=== PATIENT | female | born 1995 | race Caucasian/White ===

== ENCOUNTER 2025-04-16 12:43 | Inpatient (IN) | payer SELFPAY ==
[2025-04-16] VITALS (8 sets, daily range): BP systolic 105–153; BP diastolic 59–95; PULSE 100–128; RESP 16–24; TEMP 36.6–37; O2SAT 96–100; BMI 20.1
--- NOTE | ~2025-04-16 | XR_ITS ---
EXAMINATION: XR chest 1V Exam Date/Time: 04/16/2025 15:10 CDT HISTORY: DKA Comparison: None. RESULT: Lines, tubes, and devices: None. Lungs and pleura: Clear. Cardiomediastinal silhouette: Normal. Other: No acute osseous or upper abdominal finding. IMPRESSION: No acute cardiopulmonary process. Reviewed, dictated and finalized at location K.
--- NOTE | ~2025-04-16 | CT_ITS ---
EXAMINATION: CT chest abdomen pelvis w con DATE: 04/16/2025 15:08 INDICATION: Severe DkA, elevated white count. . TECHNIQUE: Computed tomography (CT) of the chest, abdomen, and pelvis was performed with 100 mL Omnip aque-350 intravenous contrast. Automated exposure control and iterative reconstruction technique were employed. The dose-length product was 265.22 mGy-cm. COMPARISON: None FINDINGS: CHEST: Thoracic aorta: No significant dilation. No dissection. Lung parenchyma and airways: Lungs and airways are clear. Thoracic inlet, axillae and chest wall: No thyroid or soft tissue mass. No axillary lymphadenopathy. Mediastinum: No mass or lymphadenopathy. Heart and pericardium: Normal heart size. No pericardial effusion. Coronary artery calcifications: Absent. Pleura: No effusion or mass. Thoracic bones: No acute osseous finding in the chest. ABDOMEN/PELVIS: Liver: Normal. Biliary/Gallbladder: Gallbladder is normal. No bile duct dilation. Pancreas: No mass or duct dilation. Spleen: Normal. Adrenals:No mass. Kidneys: No suspicious mass, obstructing stone, or hydronephrosis. GI tract: Mild distal esophageal and gastric wall edema. Scattered areas of mild colonic wall edema. No small or large bowel dilation. Normal appendix. Mesentery/Peritoneum: No ascites, mass, or free air. Retroperitoneum: No mass Pelvis: Pelvic organs are within normal limits Soft Tissues: Soft tissues and body wall unremarkable. Abdominopelvic bones: No acute osseous finding in the abdomen/pelvis. IMPRESSION: Mild esophagitis/gastritis. Scattered areas of mild colonic wall edema, which may reflect colitis in the appropriate clinical con text. Reviewed, dictated and finalized at location K. IMPRESSION: Mild esophagitis/gastritis. Scattered areas of mild colonic wall edema, which may reflect colitis in the ap propriate clinical context.
[2025-04-16 12:49] LABS: Glucose Point of Care 483 mg/dl (65-105)
[2025-04-16] MEDS: SODIUM CHLORIDE 0.9% IV 2,000 ML 999 ML (13:18)
[2025-04-16 13:43] LABS: Basophils Absolute Auto 0.1 K/mm3 (0.0-0.1); Basophils Percent Auto 0.6 % (0.2-1.2); Eosinophils Percent Auto 0.1 % (0-4.4); Hematocrit 47.6 % (37.0-47.0); Hemoglobin 14.4 g/dL (12.0-15.0); Immature Granulocyte Absolute 0.18 K/mm3 (0.00-0.031); Immature Granulocyte Percent A 1.2 % (0-0.5); Lymphocytes Absolute Auto 1.43 K/mm3 (0.9-3.2); Lymphocytes Percent Auto 9.3 % (18.3-44.2); Mean Corpuscular HGB Conc 30.3 g/dl (32-36); Mean Corpuscular Hemoglobin 32.6 pg (26-34); Mean Corpuscular Volume 107.7 fl (80-100); Mean Platelet Volume 10.8 fl (7.4-10.4); Monocytes Absolute Auto 0.3 K/mm3 (0.1-0.6); Neutrophils Absolute Auto 13.4 K/mm3 (1.3-6.7); Neutrophils Percent Auto 86.8 % (45.5-73.1); Platelet Count Result 359 k/mm3 (150-375); Red Blood Count 4.42 M/mm3 (4.2-5.4); Red Cell Distribution Width 14.5 % (11.5-14.5); White Blood Count 15.4 K/mm3 (4.5-10.0)
[2025-04-16 13:52] LABS: Fractional Inspired Oxygen 21 %; HCO3 VBG 3.6 mEq/l (24.0-30.0); PO2 VBG 89.4 mmHg (35.0-45.0)
[2025-04-16 13:53] LABS: pH VBG 6.922 (7.300-7.400)
[2025-04-16 13:54] LABS: Device ROOM AIR; PCO2 VBG 17.7 mmHg (42.0-48.0)
[2025-04-16 14:04] LABS: Alanine Aminotransferase 33 U/L (6-35); Albumin Level 5.3 g/dL (3.5-5.1); Alkaline Phosphatase 140 U/L (38-126); Aspartate Amino Transferase 62 U/L (14-36); Bilirubin,Total 0.7 mg/dL (0.2-1.3); Blood Urea Nitrogen 14 mg/dL (7-17); Calcium 9.5 mg/dL (8.4-10.2); Carbon Dioxide < 5 mmol/L (22-30); Chloride 102 mmol/L (98-107); Estimated CRCL calculation 52 ml/min; Estimated Glomerular Filt Rate > 60; Glucose 595 mg/dL (65-110); Magnesium 2.7 mg/dL (1.6-2.3); Phosphorus 6.2 mg/dL (2.5-4.5); Potassium 6.4 mmol/L (3.4-5.0); Sodium 138 mmol/L (137-145)
[2025-04-16 14:09] LABS: Burr Cells 1+; Macrocytosis 1+ (NORMAL); Platelet Estimate Adequate (Adequate); Schistocytes None Seen
[2025-04-16] MEDS: ONDANSETRON INJ 4 MG/2 ML VIAL IV PUSH (14:10)
[2025-04-16 14:14] LABS: BEDSIDEPREGUCG Negative (Negative)
[2025-04-16 14:18] LABS: Total Protein 10.9 g/dL (6.3-8.2)
[2025-04-16 14:20] LABS: Influenza A QL RT-PCR Negative (Negative); Influenza B QL RT-PCR Negative (Negative); RSV RNA, RT-PCR. Negative (Negative); SARS-CoV-2 RNA PCR Negative (Negative)
[2025-04-16 14:21] LABS: Add Urine Microscopic? YES; Appearance Urine Clear (Clear); Bacteria Urine Rare /hpf; Bilirubin Urine Negative (Negative); Blood Urine 3+ (Negative); Color Urine Yellow (Yellow); Glucose Urine UA 3+ mg/dL (Negative); Ketones Urine 4+ mg/dL (Negative); Leukocyte Esterase Ur Negative LEU/UL (Negative); Nitrate Urine Negative (Negative); Protein Urine 2+ mg/dL (Negative); RBC Urine 51-100 /hpf (0-2); Specific Grav Ur 1.025 (1.001-1.035); Squamous Epithelial Cell Urine None Seen /hpf (Few); Urobilinogen Urine 0.2 mg/dL (<2.0); WBC Urine 0-5 /hpf (0-3)
[2025-04-16] MEDS: LACTATED RINGERS 2,000 ML 999 ML IV CONT (14:26)
[2025-04-16] MEDS: SODIUM BICARBONATE 8.4% 50 MEQ/50 ML SYRINGE 100 MEQ IV PUSH (14:26)
[2025-04-16 14:32] LABS: Amphetamine Screen Urine Negative (Negative); Barbiturate Screen Urine Negative (Negative); Benzodiazepines Screen Urine Negative (Negative); Cannabinoid Screen Urine Negative (Negative); Cocaine Screen Urine Negative (Negative); Methadone Screen Urine Negative (Negative); Opiate Screen Urine Negative (Negative); Phencyclidine Screen Urine Negative (Negative)
[2025-04-16] MEDS: CEFEPIME 2 GM/NS 50 ML 2 GM/50 ML BAG IVPB ×2 (14:34→22:25)
[2025-04-16] MEDS: INSULIN HUMAN REGULAR (*BKC) 100 UNITS in SODIUM CHLORIDE 0.9% IV 99 ML IV CONT (15:31)
[2025-04-16] MEDS: INSULIN HUMAN REGULAR (*BKC) 100 UNITS/ML 7.5 UNITS IV PUSH (15:32)
--- NOTE | 2025-04-16 15:58 | ED_ITS ---
HPI - General Adult General Chief complaint: Recheck/Abnormal Lab/Rx Stated complaint: Possible DKA Time Seen by Provider: 04/16/25 13:17 History of Present Illness HPI narrative: This is a 29-year-old type 1 diabetic presenting with abdominal pain nausea and vomiting. Patient states she has not been taking her insulin over the last several days consistently. She says she is not taking it because she is not very ?mindful.?Occurred complaints or abdominal pain nausea and vomiting. She denies fevers chest pain difficulty breathing or urinary symptoms. No skin findings. Related Data Allergies Allergy/AdvReac Type Severity Reaction Status Date / Time Penicillins Allergy Unknown Other Verified 04/16/25 12:49 Exam 2 Narrative: APPEARANCE: No apparent distress. Head: Poor dentition EYES: EOMI, NOSE: Atraumatic NECK: Trachea midline RESPIRATORY: Tachypneic, clear to auscultation CARDIOVASCULAR: Tachycardic no peripheral edema ABDOMINAL: Soft, no focal tenderness guarding rebound MUSCULOSKELETAl: No obvious deformities NEURO: Alert. Moving 4/4 extremities SKIN:: Warm, dry. Normal color PSYCHIATRIC: Normal affect Course Vital Signs Vital signs: Vital Signs Temperature 98.1 F 04/16/25 12:46 Pulse Rate 100 04/16/25 12:46 Respiratory Rate 24 H 04/16/25 12:46 Blood Pressure 153/95 H 04/16/25 12:46 Pulse Oximetry 100 04/16/25 12:46 Oxygen Delivery Room Air 04/16/25 12:46 Temperature 98.1 F 04/16/25 13:49 Pulse Rate 128 H 04/16/25 13:49 Respiratory Rate 22 H 04/16/25 13:55 Blood Pressure 153/95 H 04/16/25 12:46 Pulse Oximetry 100 04/16/25 13:55 Oxygen Delivery Room Air 04/16/25 13:49 Medical Decision Making [facility] Narrative Medical decision making narrative: -Course: 29-year-old female presenting with abdominal pain nausea and vomiting. Found to be in severe DKA. PH 6.9. Bicarb undetectable. Potassium 6.7. Infectious workup negative. Patient given 3 L of LR. DKA fluid order set activated. Patient started on broad-spectrum antibiotics. Patient given 2 amps of sodium bicarb due to pH of 6.9. Insulin drip started Patient will be admitted to the ICU further management. -DDX includes but is not limited to: DKA, pneumonia, fever UTI, bacteremia Vital Signs Vital Signs: Vital Signs Temperature 98.1 F 04/16/25 12:46 Pulse Rate 100 04/16/25 12:46 Respiratory Rate 24 H 04/16/25 12:46 Blood Pressure 153/95 H 04/16/25 12:46 Pulse Oximetry 100 04/16/25 12:46 Oxygen Delivery Room Air 04/16/25 12:46 Temperature 98.1 F 04/16/25 13:49 Pulse Rate 128 H 04/16/25 13:49 Respiratory Rate 22 H 04/16/25 13:55 Blood Pressure 153/95 H 04/16/25 12:46 Pulse Oximetry 100 04/16/25 13:55 Oxygen Delivery Room Air 04/16/25 13:49 Lab Data 04/16/25 13:34 04/16/25 13:34 Labs: Lab Results 04/16/25 04/16/25 04/16/25 Range/Units 12:46 13:07 13:34 WBC 15.4 H (4.5-10.0) K/mm3 RBC 4.42 (4.2-5.4) M/mm3 Hgb 14.4 (12.0-15.0) g/dL Hct 47.6 H (37.0-47.0) % MCV 107.7 H (80-100) fl MCH 32.6 (26-34) pg MCHC 30.3 L (32-36) g/dl RDW 14.5 (11.5-14.5) % Plt Count 359 (150-375) k/mm3 MPV 10.8 H (7.4-10.4) fl Immature Gran % (Auto) 1.2 H (0-0.5) % Neut % (Auto) 86.8 H (45.5-73.1) % Lymph % (Auto) 9.3 L (18.3-44.2) % [place] % (Auto) 2.0 L (2.6-8.5) % Eos % (Auto) 0.1 (0-4.4) % Baso % (Auto) 0.6 (0.2-1.2) % Lymph # (Auto) 1.43 (0.9-3.2) K/mm3 [place] # (Auto) 0.3 (0.1-0.6) K/mm3 Eos # (Auto) 0.0 (0-0.3) K/mm3 Baso # (Auto) 0.1 (0.0-0.1) K/mm3 Abs Immat Gran (auto) 0.18 H (0.00-0.031) K/mm3 Absolute Neuts (auto) 13.4 H (1.3-6.7) K/mm3 Absolute Nucleated RBC 0.000 (0.0-0.012) K/mm3 Band Neutrophils % Not Reportable Nucleated RBC % 0.0 (0.0-0.2) % Platelet Estimate Adequate (Adequate) Macrocytosis 1+ (NORMAL) [place] Cells 1+ Schistocytes None seen Sodium 138 (137-145) mmol/L Potassium 6.4 H* (3.4-5.0) mmol/L Chloride 102 (98-107) mmol/L Carbon Dioxide < 5 L (22-30) mmol/L Anion Gap (4-12) mmol/L BUN 14 (7-17) mg/dL Creatinine 1.07 H (0.7-1.0) mg/dL Estim Creat Clear Calc 52 ml/min Estimated GFR > 60 (59 - ) Glucose 595 H* (65-110) mg/dL POC Capillary Glucose 483 H (65-105) mg/dl Calcium 9.5 (8.4-10.2) mg/dL Phosphorus 6.2 H (2.5-4.5) mg/dL Magnesium 2.7 H (1.6-2.3) mg/dL Total Bilirubin 0.7 (0.2-1.3) mg/dL AST 62 H (14-36) U/L ALT 33 (6-35) U/L Alkaline Phosphatase 140 H (38-126) U/L Total Protein 10.9 H (6.3-8.2) g/dL Albumin 5.3 H (3.5-5.1) g/dL Beta-Hydroxybutyrate/Acetoacetate Pending Urine Color (Yellow) Urine Appearance (Clear) Urine pH (5.0-9.0) Ur Specific [place] (1.001-1.035) Urine Protein (Negative) mg/dL Urine Glucose (UA) (Negative) mg/dL Urine Ketones (Negative) mg/dL Ur Blood (Man) (Negative) Urine Nitrate (Negative) Urine Bilirubin (Negative) Urine Urobilinogen (<2.0) mg/dL Leukocyte Esterase Rfl (Negative) PRINCE/UL Urine RBC (0-2) /hpf Urine WBC (0-3) /hpf Ur Squamous Epith Cells (Few) /hpf Urine Bacteria /hpf Urine Casts POC Urine HCG, Qual Negative (Negative) Urine Opiates Screen (Negative) Urine Methadone Screen (Negative) Ur Barbiturates Screen (Negative) Ur Phencyclidine Scrn (Negative) Ur Amphetamine Screen (Negative) U Benzodiazepines Scrn (Negative) Urine Cocaine Screen (Negative) U Cannabinoids Screen (Negative) Influenza A (RT-PCR) (Negative) Influenza B (RT-PCR) (Negative) RSV (RT-PCR) (Negative) SARS-CoV-2 RNA (RT-PCR) (Negative) 04/16/25 04/16/25 Range/Units 13:35 14:09 WBC (4.5-10.0) K/mm3 RBC (4.2-5.4) M/mm3 Hgb (12.0-15.0) g/dL Hct (37.0-47.0) % MCV (80-100) fl MCH (26-34) pg MCHC (32-36) g/dl RDW (11.5-14.5) % Plt Count (150-375) k/mm3 MPV (7.4-10.4) fl Immature Gran % (Auto) (0-0.5) % Neut % (Auto) (45.5-73.1) % Lymph % (Auto) (18.3-44.2) % [place] % (Auto) (2.6-8.5) % Eos % (Auto) (0-4.4) % Baso % (Auto) (0.2-1.2) % Lymph # (Auto) (0.9-3.2) K/mm3 [place] # (Auto) (0.1-0.6) K/mm3 Eos # (Auto) (0-0.3) K/mm3 Baso # (Auto) (0.0-0.1) K/mm3 Abs Immat Gran (auto) (0.00-0.031) K/mm3 Absolute Neuts (auto) (1.3-6.7) K/mm3 Absolute Nucleated RBC (0.0-0.012) K/mm3 Band Neutrophils % Nucleated RBC % (0.0-0.2) % Platelet Estimate (Adequate) Macrocytosis (NORMAL) [place] Cells Schistocytes Sodium (137-145) mmol/L Potassium (3.4-5.0) mmol/L Chloride (98-107) mmol/L Carbon Dioxide (22-30) mmol/L Anion Gap (4-12) mmol/L BUN (7-17) mg/dL Creatinine (0.7-1.0) mg/dL Estim Creat Clear Calc ml/min Estimated GFR (59 - ) Glucose (65-110) mg/dL POC Capillary Glucose (65-105) mg/dl Calcium (8.4-10.2) mg/dL Phosphorus (2.5-4.5) mg/dL Magnesium (1.6-2.3) mg/dL Total Bilirubin (0.2-1.3) mg/dL AST (14-36) U/L ALT (6-35) U/L Alkaline Phosphatase (38-126) U/L Total Protein (6.3-8.2) g/dL Albumin (3.5-5.1) g/dL Beta-Hydroxybutyrate/Acetoacetate Urine Color Yellow (Yellow) Urine Appearance Clear (Clear) Urine pH 5.0 (5.0-9.0) Ur Specific [place] 1.025 (1.001-1.035) Urine Protein 2+ H (Negative) mg/dL Urine Glucose (UA) 3+ H (Negative) mg/dL Urine Ketones 4+ H (Negative) mg/dL Ur Blood (Man) 3+ H (Negative) Urine Nitrate Negative (Negative) Urine Bilirubin Negative (Negative) Urine Urobilinogen 0.2 (<2.0) mg/dL Leukocyte Esterase Rfl Negative (Negative) PRINCE/UL Urine RBC 51-100 H (0-2) /hpf Urine WBC 0-5 (0-3) /hpf Ur Squamous Epith Cells None seen (Few) /hpf Urine Bacteria Rare /hpf Urine Casts 3-5 POC Urine HCG, Qual (Negative) Urine Opiates Screen Negative (Negative) Urine Methadone Screen Negative (Negative) Ur Barbiturates Screen Negative (Negative) Ur Phencyclidine Scrn Negative (Negative) Ur Amphetamine Screen Negative (Negative) U Benzodiazepines Scrn Negative (Negative) Urine Cocaine Screen Negative (Negative) U Cannabinoids Screen Negative (Negative) Influenza A (RT-PCR) Negative (Negative) Influenza B (RT-PCR) Negative (Negative) RSV (RT-PCR) Negative (Negative) SARS-CoV-2 RNA (RT-PCR) Negative (Negative) ABG Data ABG results: 04/16/25 13:36 VBG pH 6.922 L* VBG pCO2 17.7 L* VBG pO2 89.4 H VBG HCO3 3.6 L O2 Delivery Device Room air O2 Liters/Min Not Reportable FiO2 21 Critical Care Time Critical Care Time Critical Care Time: Yes Total Critical Care Time: 45 Discharge Plan Discharge Clinical Impression: DKA (diabetic ketoacidosis) Patient Disposition: Home Condition: Stable Instructions: Antibiotic Form Patient Language: Lithuanian Follow-up/Referrals: PHYSICIAN,[employer] INST[employer]ER AND SERVICER [Primary Care Provider] -
[2025-04-16] MEDS: VANCOMYCIN 1,250 MG/NS 250 ML BAG 166.67 MG IVPB (16:28)
[2025-04-16] MEDS: DEXTROSE 5%/0.45% SOD CHL 1,000 ML 150 ML IV CONT (16:50)
--- NOTE | 2025-04-16 16:52 | ADMGEN ---
This patient, Laurel Torres, was admitted to Intensive Care Unit-6. Patient/family oriented to hospital policies and general routines including ID bracelet, bed and alarms, visiting hours, pain management, procedures, bathroom and other care routines, personal items, smoking policy, room service/diet, and visiting hours. Information on how to activate the Rapid Response Team has been discussed. Patient/Family are encouraged to report perceived risks to care and to ask questions if they do not understand what they are told or what they should do.
[2025-04-16 16:53] LABS: Glucose Point of Care 219 mg/dl (65-105)
[2025-04-16 18:00] LABS: Glucose Point of Care 131 mg/dl (65-105)
[2025-04-16 18:11] LABS: Blood Urea Nitrogen 11 mg/dL (7-17); Calcium 8.2 mg/dL (8.4-10.2); Carbon Dioxide < 5 mmol/L (22-30); Chloride 114 mmol/L (98-107); Estimated CRCL calculation 73 ml/min; Estimated Glomerular Filt Rate > 60; Glucose 178 mg/dL (65-110); Potassium 4.6 mmol/L (3.4-5.0); Sodium 144 mmol/L (137-145)
--- NOTE | 2025-04-16 18:35 | P.HP_ITS ---
H&P: HPI History of Present Illness Date/Time: 04/16/25 18:35 Chief Complaint: Nausea vomiting DKA Narrative: 29-year-old female with a PMHx: of type 1 diabetes, insulin dependent, noncompliance with regimen reported to the emergency room today with symptoms of diabetic ketoacidosis the patient mention being a type 1 diabetic and reporting feeling very nauseous and had episodes of vomiting starting in the morning of the presentation, the patient did not report having any diarrhea fevers or chills the patient typically manage diabetes with insulin pens but admits sometimes forgetting to take the medication patient does not use a continuous glucose monitor due to insurance issues in mention a past set up with social service coordinator but is uncertain of the outcome. Patient reports no recent visits with the primary care due to her not having insurance at this time. She reports occasional marijuana use. ED workup revealed elevated WBC 15.4, initial K+ 6.4, creatinine 1.07, glucose 595, phosphorus 6.2, magnesium 2.7, AST 62, alk-phos 140, UA results include urine protein, elevated glucose, and elevated ketones beta hydroxybutyrate 8.11 chest x-ray reveals no acute cardiopulmonary process. CT chest abdomen pelvis reveals mild esophagitis/gastritis scattered areas of mild colonic wall edema which may reflect colitis in the appropriate clinical context Review of Systems Review of Systems: All systems reviewed & are unremarkable except as noted in HPI and below PMFSH Social History Social History Smoking packs per day: 0.5 Smoking cigarettes per day: 10.0 Years smoked: 10 Smoking pack-years: 5.00 Smoking status: Current some day smoker Tobacco type: cigarettes Alcohol intake: current Drinks per week: 8 Substance use: never Substance use type: does not use Do You Feel Safe in your Home?: Yes Lack of Transportation: No Lack of Food: Never True Current Housing: I Have Housing Concerned About Future Housing: No Difficulty Paying Gas/Electric Bills: No Difficulty Paying for Meds: No Currently Unemployed: No Education: Decline to Answer Difficulty w/ Childcare or Family Care: No Spiritual care concerns: No Meds Home Medications and Allergies Home Medications ?Medication ?Instructions ?Recorded ?Confirmed ?Type insulin aspart U-100 100 unit/mL 1 unit subcut .see dose instruction 04/16/25 04/16/25 History (3 mL) subcutaneous pen insulin glargine 100 unit/mL (3 14 unit subcut DAILY 04/16/25 04/16/25 History mL) subcutaneous pen (Lantus Solostar U-100 Insulin) Allergies Allergy/AdvReac Type Severity Reaction Status Date / Time Penicillins Allergy Unknown Other Verified 04/16/25 16:56 Vital Signs Vital Signs - 24 hr 04/16/25 12:46 04/16/25 13:49 04/16/25 13:55 Temperature 98.1 F 98.1 F Pulse Rate 100 128 H Respiratory Rate 24 H 22 H 22 H Blood Pressure 153/95 H Pulse Oximetry 100 100 100 Oxygen Delivery Room Air Room Air 04/16/25 16:52 04/16/25 18:00 Temperature 98 F Pulse Rate 126 H 114 H Respiratory Rate 21 H 20 Blood Pressure 133/89 122/75 Pulse Oximetry 100 100 Oxygen Delivery Exam Narrative: APPEARANCE: No apparent distress. Resting with eyes closed easily arouses Head: Poor dentition EYES: EOMI, NOSE: Atraumatic NECK: Trachea midline RESPIRATORY: Tachypneic, clear to auscultation CARDIOVASCULAR: Tachycardic no peripheral edema ABDOMINAL: Soft, no focal tenderness guarding rebound MUSCULOSKELETAl: No obvious deformities NEURO: Alert. Moving 4/4 extremities SKIN:: Circular, raised red rash right lower back PSYCHIATRIC: Normal affect H&P: Results Labs Labs: Short CBC 04/16/25 Range/Units 13:34 WBC 15.4 H (4.5-10.0) K/mm3 Hgb 14.4 (12.0-15.0) g/dL Hct 47.6 H (37.0-47.0) % Plt Count 359 (150-375) k/mm3 [facility] 04/16/25 04/16/25 13:34 17:49 Sodium 138 144 Potassium 6.4 H* 4.6 Chloride 102 114 H Carbon Dioxide < 5 L < 5 L BUN 14 11 Creatinine 1.07 H 0.74 Glucose 595 H* 178 H Calcium 9.5 8.2 L Liver Function 04/16/25 Range/Units 13:34 Total Bilirubin 0.7 (0.2-1.3) mg/dL AST 62 H (14-36) U/L ALT 33 (6-35) U/L Alkaline Phosphatase 140 H (38-126) U/L Albumin 5.3 H (3.5-5.1) g/dL Urine 04/16/25 Range/Units 14:09 Urine Color Yellow (Yellow) Urine Appearance Clear (Clear) Urine pH 5.0 (5.0-9.0) Ur Specific [place] 1.025 (1.001-1.035) Urine Protein 2+ H (Negative) mg/dL Urine Glucose (UA) 3+ H (Negative) mg/dL Pulse Oximetry SpO2 results: 98% on RA Attestation: I personally reviewed and interpreted this pulse oximetry as follows: Imaging Chest x-ray: Radiologist's impression: IMPRESSION: No acute cardiopulmonary process. CT scan - abdomen: Radiologist's impression: IMPRESSION: Mild esophagitis/gastritis. Scattered areas of mild colonic wall edema, which may reflect colitis in the appropriate clinical context. Assessment and Plan Assessment and plan (1) DKA (diabetic ketoacidosis): Qualifiers: Diabetes mellitus type: type 1 Code(s): E11.10 - Type 2 diabetes mellitus with ketoacidosis without coma Status: Acute Assessment and Plan: uncontrolled non-compliant with medications -continue ICU/insulin drip DKA protocol -check BMP q.4 hours Continue monitor K+ (2) Rash and nonspecific skin eruption: Code(s): R21 - Rash and other nonspecific skin eruption Status: Acute Assessment and Plan: -continue to monitor -check STI (3) Esophagitis: Code(s): K20.90 - Esophagitis, unspecified without bleeding Status: Acute (4) Colitis: Code(s): K52.9 - Noninfective gastroenteritis and colitis, unspecified Status: Acute Assessment and Plan: As evidence by CT abdomen -pantoprazole 40 mg IV push q. 12 hours -NPO, advance as tolerated (5) Leukocytosis: Code(s): D72.829 - Elevated white blood cell count, unspecified Status: Acute Assessment and Plan: -continue cefepime 2 g IVP q.12 hours -continue vancomycin 1000 mg Q 24 hours -repeat CBC, CMP daily -blood cultures pending Plan Continue home medications: VTE Prophylaxis: SCDs DIET: NPO Anticipated hospital stay: > 2 days Code Status: Full code Quality VTE Prophylaxis VTE prophylaxis: mechanical ordered I spent around 45 minutes of direct patient care including (but not limited to) bedside evaluation, physical examination, decision-making, review of medical records, labs and investigations, discussion with the nursing staff and co- ordination of team-based critical care management of the patient. ? Patient seen and examined at bedside during my rounds ? Collaborated with patient's nurse at the bedside in detail and addressed all concerns ? Labs, electrolytes, radiology, investigations and test results reviewed ? Consult/Nursing/Ancillary notes on the chart reviewed and appreciated ? Spoke with patient/family at the bedside and answered all the questions that they had Hospitalist MIPS Advance Care Plan I have confirmed that the patient's Advanced Care Plan is present, code status is documented, or surrogate decision maker is listed in patient medical record.: Yes Medication Reconciliation I have utilized all available resources to obtain, update and review the patients current medications (includes all prescriptions, OTC, herbals, cannabis, and nutritional supplements).: Yes
[2025-04-16 18:36] LABS: MRSA (PCR). NOT DETECTED (NOT DETECTE)
[2025-04-16] MEDS: ACETAMINOPHEN 325 MG TABLET 650 MG PO (19:03)
[2025-04-16] MEDS: KCL 20 MEQ/D5/0.45% SOD CHL 1,000 ML 150 ML IV CONT (19:03)
[2025-04-16 19:15] LABS: Glucose Point of Care 143 mg/dl (65-105)
[2025-04-16 19:29] LABS: Beta-Hydroxybutyrate/Acetoacetate 8.11 mmol/L (0.02-0.27)
[2025-04-16 20:01] LABS: Hemoglobin A1C. 9.2 % (<5.7)
[2025-04-16 20:07] LABS: Glucose Point of Care 129 mg/dl (65-105)
[2025-04-16 21:09] LABS: Glucose Point of Care 121 mg/dl (65-105)
[2025-04-16 22:03] LABS: Glucose Point of Care 130 mg/dl (65-105)
[2025-04-16] MEDS: PANTOPRAZOLE SODIUM IV 40 MG VIAL IV PUSH (22:25)
[2025-04-16 22:59] LABS: Glucose Point of Care 123 mg/dl (65-105)
[2025-04-16 23:22] LABS: Anion Gap 10 mmol/L (4-12); Blood Urea Nitrogen 11 mg/dL (7-17); Calcium 8.1 mg/dL (8.4-10.2); Carbon Dioxide 14 mmol/L (22-30); Chloride 113 mmol/L (98-107); Estimated CRCL calculation 94 ml/min; Estimated Glomerular Filt Rate > 60; Glucose 114 mg/dL (65-110); Potassium 3.8 mmol/L (3.4-5.0); Sodium 137 mmol/L (137-145)
[2025-04-17] VITALS (11 sets, daily range): BP systolic 94–143; BP diastolic 65–103; PULSE 84–105; RESP 15–28; TEMP 36–37.1; O2SAT 98–100
[2025-04-17 00:12] LABS: Glucose Point of Care 112 mg/dl (65-105)
[2025-04-17 01:02] LABS: Glucose Point of Care 95 mg/dl (65-105)
[2025-04-17] MEDS: KCL 20 MEQ/D5/0.45% SOD CHL 1,000 ML 150 ML IV CONT ×2 (01:05→07:58)
[2025-04-17 02:07] LABS: Glucose Point of Care 107 mg/dl (65-105)
[2025-04-17 03:04] LABS: Glucose Point of Care 104 mg/dl (65-105)
[2025-04-17 04:00] LABS: Glucose Point of Care 114 mg/dl (65-105)
[2025-04-17 04:19] LABS: Anion Gap 9 mmol/L (4-12); Blood Urea Nitrogen 10 mg/dL (7-17); Calcium 8.2 mg/dL (8.4-10.2); Carbon Dioxide 15 mmol/L (22-30); Chloride 113 mmol/L (98-107); Estimated CRCL calculation 87 ml/min; Estimated Glomerular Filt Rate > 60; Glucose 101 mg/dL (65-110); Potassium 3.7 mmol/L (3.4-5.0); Sodium 137 mmol/L (137-145)
[2025-04-17 05:01] LABS: Glucose Point of Care 107 mg/dl (65-105)
[2025-04-17 06:03] LABS: Glucose Point of Care 95 mg/dl (65-105)
[2025-04-17 06:50] LABS: Glucose Point of Care 97 mg/dl (65-105)
[2025-04-17 07:10] LABS: Anion Gap 8 mmol/L (4-12); Blood Urea Nitrogen 11 mg/dL (7-17); Carbon Dioxide 15 mmol/L (22-30); Chloride 112 mmol/L (98-107); Estimated CRCL calculation 101 ml/min; Estimated Glomerular Filt Rate > 60; Glucose 87 mg/dL (65-110); Potassium 3.5 mmol/L (3.4-5.0); Sodium 135 mmol/L (137-145)
[2025-04-17] MEDS: LACTATED RINGERS 1,000 ML 999 ML IV CONT (07:58)
[2025-04-17] MEDS: metroNIDAZOLE 500 MG/ISO 100ML 500 MG/100 ML BAG 100 MG IVPB ×3 (08:03→23:31)
[2025-04-17] MEDS: PANTOPRAZOLE SODIUM IV 40 MG VIAL IV PUSH ×2 (08:04→22:48)
[2025-04-17] MEDS: CEFEPIME 2 GM/NS 50 ML 2 GM/50 ML BAG IVPB ×2 (08:04→22:54)
[2025-04-17] MEDS: VANCOMYCIN 1,000 MG/NS 250 ML 1,000 MG/250 ML BAG 250 MG IVPB ×2 (08:05→22:46)
[2025-04-17 08:16] LABS: Glucose Point of Care 75 mg/dl (65-105)
[2025-04-17 09:12] LABS: Glucose Point of Care 73 mg/dl (65-105)
--- NOTE | 2025-04-17 09:46 | WPDCNINT ---
Assessment and Plan Assessment and plan (1) DKA (diabetic ketoacidosis): Qualifiers: Diabetes mellitus type: type 1 Code(s): E11.10 - Type 2 diabetes mellitus with ketoacidosis without coma Status: Acute Assessment and Plan: 04/16: Patient presented with hyperglycemia, in severe DKA with pH of 6.9, hyperkalemia, severe metabolic acidosis, UA was positive for ketones, proteins and glucose. -patient was given 3 L IV fluid bolus in the ER, started on insulin infusion per DKA protocol in transfer the ICU for further management -CT scan of the chest abdomen and pelvis showed mild esophagitis/gastritis, scattered areas of mild colonic wall edema which may reflect colitis in the appropriate clinical context. -chest x-ray was clear with no acute cardiopulmonary process -remains on insulin infusion per DKA protocol, CO2 of 15, anion gap is closed -additional IV fluid bolus has been ordered this morning -will continue to follow BMP, will likely transition on next BMP results (2) Esophagitis: Code(s): K20.90 - Esophagitis, unspecified without bleeding Status: Acute Assessment and Plan: Start esophagitis/gastritis on CT scan of the abdomen and pelvis. -continue Protonix IV q.12 hours (3) Colitis: Code(s): K52.9 - Noninfective gastroenteritis and colitis, unspecified Status: Acute Assessment and Plan: -patient started on cefepime and vancomycin for possible colitis, skin rash -added Flagyl 04/17 -will deescalate once blood cultures result - MRSA PCR is negative Plan DVT prophylaxis: Lovenox Stress ulcer prophylaxis: Protonix Nutrition: NPO except ice chips Code Status: Full code Critical Care Time Spent: 48 minutes Due to a high probability of clinically significant, life threatening deterioration, the patient required my highest level of preparedness to intervene emergently and I personally spent this critical care time directly and personally managing the patient. This critical care time included obtaining a history; examining the patient; pulse oximetry; ordering and review of studies; arranging urgent treatment with development of a management plan; evaluation of patient's response to treatment; frequent reassessment; and discussions with other providers. It was exclusive of separately billable procedures and treating other patients and teaching time. Please see Assessment and Plan section and the rest of the note for further information on patient assessment and treatment This dictation may have been done utilizing a voice recognition system. Attempts have been made to correct errors. However, there may be uncorrected grammatical, spelling, and recognitions errors present. 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 Found to be in severe DKA, pH of 6.9, bicarb was undetectable, potassium of 6.7, elevated beta hydroxybutyrate, UA was positive for proteins, elevated glucose and elevated ketones. Infectious workup was negative, patient was given 3 L IV fluid bolus and started on insulin infusion per DKA protocol. CT chest, abdomen, pelvis revealed by esophagitis/gastritis, scattered areas of mild colonic wall edema which may reflect colitis and the appropriate clinical context. Chest x-ray was clear with no acute cardiopulmonary process. Patient was started on cefepime and vancomycin in the ER and transferred to the ICU for further management Patient seen and examined this morning in the ICU, pleasant female, in no acute distress. States he feels better, denies any chest pain, shortness of breath abdominal pain, nausea vomiting at this time. She remains tachycardic, asked the bedside RN to give her 1 L IV fluid bolus at this time. Anion gap this morning has closed but his CO2 is still 15. Patient states that she smokes a pack a day of tobacco, occasionally uses marijuana. Drinks on most days of the week. Review of Systems Review of Systems: All systems reviewed & are unremarkable except as noted in HPI and below [facility], LAT[facility] Social History Social History Smoking packs per day: 0.5 Smoking cigarettes per day: 10.0 Years smoked: 10 Smoking pack-years: 5.00 Smoking status: Current some day smoker Tobacco type: cigarettes Alcohol intake: current Drinks per week: 8 Substance use: never Substance use type: does not use Do You Feel Safe in your Home?: Yes Lack of Transportation: No Lack of Food: Never True Current Housing: I Have Housing Concerned About Future Housing: No Difficulty Paying Gas/Electric Bills: No Difficulty Paying for Meds: No Currently Unemployed: No Education: Decline to Answer Difficulty w/ Childcare or Family Care: No Spiritual care concerns: No Meds Home Medications and Allergies Home Medications ?Medication ?Instructions ?Recorded ?Confirmed ?Type insulin aspart U-100 100 unit/mL 1 unit subcut .see dose instruction 04/16/25 04/16/25 History (3 mL) subcutaneous pen insulin glargine 100 unit/mL (3 14 unit subcut DAILY 04/16/25 04/16/25 History mL) subcutaneous pen (Lantus Solostar U-100 Insulin) Allergies Allergy/AdvReac Type Severity Reaction Status Date / Time Penicillins Allergy Unknown Other Verified 04/16/25 16:56 Vital Signs Vital Signs - 24 hr 04/16/25 12:46 04/16/25 13:49 04/16/25 13:55 Temperature 98.1 F 98.1 F Pulse Rate 100 128 H Respiratory Rate 24 H 22 H 22 H Blood Pressure 153/95 H Pulse Oximetry 100 100 100 Oxygen Delivery Room Air Room Air Fraction of Inspired Oxygen 04/16/25 16:52 04/16/25 18:00 04/16/25 18:00 Temperature 98 F Pulse Rate 126 H 114 H 111 H Respiratory Rate 21 H 20 Blood Pressure 133/89 122/75 Pulse Oximetry 100 100 Oxygen Delivery Fraction of Inspired Oxygen 04/16/25 20:00 04/16/25 20:00 04/16/25 20:39 Temperature 98.5 F Pulse Rate 101 H 107 H 100 Respiratory Rate 17 20 Blood Pressure 105/60 Pulse Oximetry 98 96 Oxygen Delivery Room Air Fraction of Inspired Oxygen 04/16/25 22:00 04/16/25 22:00 04/17/25 00:00 Temperature 98.6 F 98.7 F Pulse Rate 104 H 100 105 H Respiratory Rate 16 Blood Pressure 106/59 L 107/65 Pulse Oximetry 98 98 Oxygen Delivery Fraction of Inspired Oxygen 04/17/25 00:00 04/17/25 00:00 04/17/25 02:00 Temperature 98.6 F Pulse Rate 99 94 Respiratory Rate 17 Blood Pressure 125/74 Pulse Oximetry 100 Oxygen Delivery Room Air Fraction of Inspired Oxygen 04/17/25 02:00 04/17/25 04:00 04/17/25 04:00 Temperature 98.5 F Pulse Rate 99 93 Respiratory Rate 28 H Blood Pressure 136/84 Pulse Oximetry 99 Oxygen Delivery Room Air Fraction of Inspired Oxygen 04/17/25 04:00 04/17/25 06:00 04/17/25 06:00 Temperature Pulse Rate 91 95 94 Respiratory Rate 16 Blood Pressure 143/103 H Pulse Oximetry 98 Oxygen Delivery Fraction of Inspired Oxygen 04/17/25 08:00 04/17/25 08:00 Temperature 98.2 F Pulse Rate 84 93 Respiratory Rate 15 Blood Pressure 128/81 Pulse Oximetry 98 Oxygen Delivery Fraction of Inspired Oxygen Exam Narrative: General: Pleasant female in no acute distress HEENT:? Pupils equal and reactive, sclerae is clear, dry oral mucosa Neck:? Supple Respiratory:? Clear to auscultation bilaterally, no wheezing, adequate air entry Cardiac:? S1-S2 normal, sinus tachycardia Abdomen:? Soft, nontender, nondistended, normoactive bowel sounds Extremities:? No edema, palpable pedal pulses Neuro:? Patient is awake, alert, oriented, nonfocal, answers to questions appropriately and follows simple commands Skin:? Warm and intact Psych:? Normal mentation and affect Results Labs 04/16/25 13:34 04/17/25 06:49 Labs: Short CBC 04/16/25 Range/Units 13:34 WBC 15.4 H (4.5-10.0) K/mm3 Hgb 14.4 (12.0-15.0) g/dL Hct 47.6 H (37.0-47.0) % Plt Count 359 (150-375) k/mm3 [facility] 04/16/25 04/16/25 04/16/25 13:34 17:49 23:01 Sodium 138 144 137 Potassium 6.4 H* 4.6 3.8 Chloride 102 114 H 113 H Carbon Dioxide < 5 L < 5 L 14 L BUN 14 11 11 Creatinine 1.07 H 0.74 0.56 L Glucose 595 H* 178 H 114 H Calcium 9.5 8.2 L 8.1 L 04/17/25 04/17/25 03:58 06:49 Sodium 137 135 L Potassium 3.7 3.5 Chloride 113 H 112 H Carbon Dioxide 15 L 15 L BUN 10 11 Creatinine 0.61 L 0.52 L Glucose 101 87 Calcium 8.2 L 8.0 L Liver Function 04/16/25 Range/Units 13:34 Total Bilirubin 0.7 (0.2-1.3) mg/dL AST 62 H (14-36) U/L ALT 33 (6-35) U/L Alkaline Phosphatase 140 H (38-126) U/L Albumin 5.3 H (3.5-5.1) g/dL Urine 04/16/25 Range/Units 14:09 Urine Color Yellow (Yellow) Urine Appearance Clear (Clear) Urine pH 5.0 (5.0-9.0) Ur Specific [place] 1.025 (1.001-1.035) Urine Protein 2+ H (Negative) mg/dL Urine Glucose (UA) 3+ H (Negative) mg/dL Quality VTE Prophylaxis VTE prophylaxis: pharmacologic ordered Hospitalist MIPS Advance Care Plan I have confirmed that the patient's Advanced Care Plan is present, code status is documented, or surrogate decision maker is listed in patient medical record.: Yes Medication Reconciliation I have utilized all available resources to obtain, update and review the patients current medications (includes all prescriptions, OTC, herbals, cannabis, and nutritional supplements).: Yes
[2025-04-17] MEDS: DEXTROSE 50% 25 GM/50 ML SYRINGE IV PUSH (10:02)
[2025-04-17 10:16] LABS: Glucose Point of Care 70 mg/dl (65-105)
[2025-04-17 11:02] LABS: Glucose Point of Care 131 mg/dl (65-105)
[2025-04-17 11:07] LABS: Anion Gap 7 mmol/L (4-12); Blood Urea Nitrogen 9 mg/dL (7-17); Calcium 8.1 mg/dL (8.4-10.2); Carbon Dioxide 15 mmol/L (22-30); Chloride 112 mmol/L (98-107); Estimated CRCL calculation 103 ml/min; Estimated Glomerular Filt Rate > 60; Glucose 141 mg/dL (65-110); Potassium 3.5 mmol/L (3.4-5.0); Sodium 134 mmol/L (137-145)
[2025-04-17] MEDS: INSULIN GLARGINE (*BKC) 100 UNITS/ML 14 UNITS SUB-Q (12:30)
[2025-04-17 12:37] LABS: Glucose Point of Care 124 mg/dl (65-105)
[2025-04-17 13:24] LABS: Glucose Point of Care 112 mg/dl (65-105)
[2025-04-17 14:51] LABS: Glucose Point of Care 90 mg/dl (65-105)
[2025-04-17 16:11] LABS: Glucose Point of Care 50 mg/dl (65-105)
[2025-04-17 17:34] LABS: Glucose Point of Care 136 mg/dl (65-105)
--- NOTE | 2025-04-17 18:28 | PC.NURSE ---
pt transferred from ICU to /S Rm. [id number] @ 1825 04/17/25.
[2025-04-17 20:46] LABS: Glucose Point of Care 347 mg/dl (65-105)
[2025-04-17] MEDS: INSULIN ASPART (*BKC) 100 UNITS/ML SUB-Q (22:51)
[2025-04-18 04:15] VITALS: BP 129/64; PULSE 100; RESP 20; TEMP 36; O2SAT 99
[2025-04-18] MEDS: metroNIDAZOLE 500 MG/ISO 100ML 500 MG/100 ML BAG 100 MG IVPB (05:04)
[2025-04-18 07:37] LABS: Glucose Point of Care 228 mg/dl (65-105)
[2025-04-18 07:54] LABS: Basophils Absolute Auto 0.1 K/mm3 (0.0-0.1); Basophils Percent Auto 0.9 % (0.2-1.2); Eosinophils Absolute Auto 0.1 K/mm3 (0-0.3); Eosinophils Percent Auto 1.2 % (0-4.4); Hematocrit 32.5 % (37.0-47.0); Hemoglobin 10.3 g/dL (12.0-15.0); Immature Granulocyte Absolute 0.02 K/mm3 (0.00-0.031); Immature Granulocyte Percent A 0.3 % (0-0.5); Lymphocytes Absolute Auto 2.23 K/mm3 (0.9-3.2); Lymphocytes Percent Auto 33.4 % (18.3-44.2); Mean Corpuscular HGB Conc 31.7 g/dl (32-36); Mean Corpuscular Hemoglobin 31.9 pg (26-34); Mean Corpuscular Volume 100.6 fl (80-100); Mean Platelet Volume 10.4 fl (7.4-10.4); Monocytes Absolute Auto 0.5 K/mm3 (0.1-0.6); Monocytes Percent Auto 7.3 % (2.6-8.5); Neutrophils Absolute Auto 3.8 K/mm3 (1.3-6.7); Neutrophils Percent Auto 56.9 % (45.5-73.1); Platelet Count Result 204 k/mm3 (150-375); Red Blood Count 3.23 M/mm3 (4.2-5.4); Red Cell Distribution Width 14.6 % (11.5-14.5); White Blood Count 6.7 K/mm3 (4.5-10.0)
[2025-04-18 08:15] LABS: Anion Gap 9 mmol/L (4-12); Blood Urea Nitrogen 9 mg/dL (7-17); Calcium 8.5 mg/dL (8.4-10.2); Carbon Dioxide 18 mmol/L (22-30); Chloride 107 mmol/L (98-107); Estimated CRCL calculation 101 ml/min; Estimated Glomerular Filt Rate > 60; Glucose 231 mg/dL (65-110); Magnesium 1.9 mg/dL (1.6-2.3); Phosphorus 2.5 mg/dL (2.5-4.5); Potassium 3.5 mmol/L (3.4-5.0); Sodium 134 mmol/L (137-145)
[2025-04-18] MEDS: INSULIN ASPART (*BKC) 100 UNITS/ML SUB-Q (08:16)
[2025-04-18] MEDS: PANTOPRAZOLE SODIUM IV 40 MG VIAL IV PUSH (08:17)
[2025-04-18] MEDS: INSULIN GLARGINE (*BKC) 100 UNITS/ML 14 UNITS SUB-Q (08:17)
[2025-04-18] MEDS: CEFEPIME 2 GM/NS 50 ML 2 GM/50 ML BAG IVPB (08:17)
[2025-04-18 08:34] LABS: Vancomycin Trough 7.8 ug/mL (10.0-20.0)
--- NOTE | 2025-04-18 11:06 | PCCDE ---
Discussed patient status with nurse Sybil Wood. Patient not welcoming to education and states she's been educated. Requested that Sybil provide the patient with the Diabetes Book from the toolkit which focuses on the need to monitor blood glucose, take medications as prescribed, and follow a diabetic diet. Requested that an Outpatient DSMT Order/Referral also be initiated. Dietitians also consulted to see patient.
[2025-04-18] MEDS: VANCOMYCIN 1,500 MG/NS 500 ML 1,500 MG/500 ML BAG 250 MG IVPB (11:13)
[2025-04-18 11:35] LABS: Glucose Point of Care 360 mg/dl (65-105)
--- NOTE | 2025-04-18 11:49 | P.DS_ITS ---
DS: Admitting Diagnosis Discharge Date 04/18/25 Admitting Diagnosis DKA, nausea, vomiting DS: Discharge Diagnosis Discharge Diagnosis (1) DKA (diabetic ketoacidosis): Qualifiers: Diabetes mellitus type: type 1 Code(s): E11.10 - Type 2 diabetes mellitus with ketoacidosis without coma Status: Acute (2) Esophagitis: Code(s): K20.90 - Esophagitis, unspecified without bleeding Status: Acute (3) Colitis: Code(s): K52.9 - Noninfective gastroenteritis and colitis, unspecified Status: Acute (4) Tick bite: Code(s): W57.XXXA - Bitten or stung by nonvenomous insect and other nonvenomous arthropods, initial encounter Status: Acute (5) Rash and nonspecific skin eruption: Code(s): R21 - Rash and other nonspecific skin eruption Status: Acute DS: Summary Hospital Course Hospital Course: 29-year-old female with a PMHx: of type 1 diabetes, insulin dependent, noncompliance with regimen reported to the emergency room today with symptoms of diabetic ketoacidosis the patient mention being a type 1 diabetic and reporting feeling very nauseous and had episodes of vomiting starting in the morning of the presentation, the patient did not report having any diarrhea fevers or chills the patient typically manage diabetes with insulin pens but admits sometimes forgetting to take the medication patient does not use a continuous glucose monitor due to insurance issues in mention a past set up with director social but is uncertain of the outcome. Patient reports no recent visits with the primary care due to her not having insurance at this time. ED workup revealed elevated WBC 15.4, initial K+ 6.4, creatinine 1.07, glucose 595, phosphorus 6.2, magnesium 2.7, AST 62, alk-phos 140, UA results include urine protein, elevated glucose, and elevated ketones beta hydroxybutyrate 8.11 chest x-ray reveals no acute cardiopulmonary process. CT chest abdomen pelvis reveals mild esophagitis/gastritis scattered areas of mild colonic wall edema which may reflect colitis in the appropriate clinical context. Patient admitted to the ICU where she was started on fluids and insulin infusion. She was put on DKA protocol. Chest x-ray with no acute cardiopulmonary process. She was found to have gastritis on CT scan was started on Protonix q.12 hours. Colitis also seen although she did not have any symptoms so she was started on cefepime, vancomycin and Flagyl. Her MRSA PCR was negative. She also had a lesion on her right flank that she said she had a tick bite and since then the area has become erythematous and scabbed. She does not have any pain or discharge from the area but it does itch occasionally. Her labs in symptoms improved with treatment and she was moved out of the ICU. Discussed importance of taking care of her diabetes. She is on Basaglar and Lantus at home. Encouraged taking her sugars regularly and following up with PCP. Time Spent with Patient Time attestation: Total time spent providing and/or coordinating discharge services: Exam Narrative: GENERAL: Comfortable, no acute distress HENMT: moist mucous membranes EYES: EOM intact b/l NECK: no lymphadenopathy RESPIRATORY: clear to auscultation, no increased respiratory effort CARDIO: Regular rate and rhythm GI: soft, nontender, bowel sounds present SKIN/EXTREMITIES: Rash on right flank where a tick had been attached. No target rash but surrounding erythema and scab visualized. No purulent discharge seen. NEURO: PROM intact, answers questions appropriately, A&O x4 DS: Data Data Completed and Pending Labs on day of discharge: Labs from last 24 hours 04/18/25 04/18/25 04/18/25 11:28 07:27 07:26 WBC 6.7 RBC 3.23 L Hgb 10.3 L D Hct 32.5 L MCV 100.6 H D MCH 31.9 MCHC 31.7 L RDW 14.6 H Plt Count 204 MPV 10.4 Immature Gran % (Auto) 0.3 Neut % (Auto) 56.9 Lymph % (Auto) 33.4 [place] % (Auto) 7.3 Eos % (Auto) 1.2 Baso % (Auto) 0.9 Lymph # (Auto) 2.23 [place] # (Auto) 0.5 Eos # (Auto) 0.1 Baso # (Auto) 0.1 Abs Immat Gran (auto) 0.02 Absolute Neuts (auto) 3.8 Absolute Nucleated RBC 0.000 Nucleated RBC % 0.0 Sodium 134 L Potassium 3.5 Chloride 107 Carbon Dioxide 18 L Anion Gap 9 BUN 9 Creatinine 0.52 L Estim Creat Clear Calc 101 Estimated GFR > 60 Glucose 231 H POC Capillary Glucose 360 H 228 H Calcium 8.5 Phosphorus 2.5 Magnesium 1.9 Vancomycin Trough 7.8 L 04/17/25 04/17/25 04/17/25 19:58 17:19 16:07 WBC RBC Hgb Hct MCV MCH MCHC RDW Plt Count MPV Immature Gran % (Auto) Neut % (Auto) Lymph % (Auto) [place] % (Auto) Eos % (Auto) Baso % (Auto) Lymph # (Auto) [place] # (Auto) Eos # (Auto) Baso # (Auto) Abs Immat Gran (auto) Absolute Neuts (auto) Absolute Nucleated RBC Nucleated RBC % Sodium Potassium Chloride Carbon Dioxide Anion Gap BUN Creatinine Estim Creat Clear Calc Estimated GFR Glucose POC Capillary Glucose 347 H 136 H 50 L* Calcium Phosphorus Magnesium Vancomycin Trough 04/17/25 04/17/25 04/17/25 14:33 13:19 12:29 WBC RBC Hgb Hct MCV MCH MCHC RDW Plt Count MPV Immature Gran % (Auto) Neut % (Auto) Lymph % (Auto) [place] % (Auto) Eos % (Auto) Baso % (Auto) Lymph # (Auto) [place] # (Auto) Eos # (Auto) Baso # (Auto) Abs Immat Gran (auto) Absolute Neuts (auto) Absolute Nucleated RBC Nucleated RBC % Sodium Potassium Chloride Carbon Dioxide Anion Gap BUN Creatinine Estim Creat Clear Calc Estimated GFR Glucose POC Capillary Glucose 90 112 H 124 H Calcium Phosphorus Magnesium Vancomycin Trough Preliminary micro results at discharge 04/16/25 14:23 Blood Culture - Preliminary Blood 04/16/25 14:23 Blood Culture - Preliminary Blood Discharge Plan Discharge Consulting providers: Brandi Crespo; Ihsan Solano Discharging Clinician: Karen Acuña Patient Disposition: Home Activity: no preference Diet: diabetic Discharge Instructions: Diabetes: -To prevent foot problems in diabetics it is advised to have good blood sugar management, avoid smoking, avoid activities that can injure the feet, trimming nails properly, checking feet daily, wearing socks and shoes, and getting regular foot exams by a physician. -Controlling blood pressure and cholesterol decreases risk for heart attack stroke and kidney disease. -Please take medications as prescribed -Please take all medications as prescribed. -Hemoglobin A1c goal is <7 -Please check blood sugars before before meals and at before bed. -Recommend keeping blood sugar log to show to your primary care provider. -Please follow the diabetes management book given to you by the clinical document improvement educator. -Can follow up with clinical document improvement educator for further education and questions. -Follow diet advised by the clinical document improvement educator to obtain better blood sugar control. Discharge disposition: -Take medications as prescribed -Monitor blood pressures -Avoid social areas, you wear a mask when in social settings -Encouraged to continue with yearly vaccinations -Return to the emergency department if he developed sudden shortness of breath, chest pain, nausea, vomiting, upset stomach or intractable diarrhea -Return to the emergency department if you develop fever greater than 100.4 -Follow-up with the primary care physician within 1-2 weeks -Thank you for [facility] for your healthcare needs Patient Instructions: Antibiotic Form, Insulin Regular (By injection), Insulin Lispro (By injection), Diabetic Ketoacidosis (GEN), Hypoglycemia in a Person with Diabetes (DC), What is Insulin (DC), How to Give an Insulin Injection (DC), Insulin Pens (DC), Managing Diabetes During Sick Days (DC), Diabetic Hyperglycemia (DC), Hemoglobin A1c (GEN), What to Do if Your Blood Sugar is Low (DC), Diabetes and Nutrition (DC), Diabetes and Exercise (DC), Diabetes Type 1: Management (DC) Patient Language: [place] Stand Alone Forms: General Discharge Information Follow-up/Referrals: Brandi Crespo, [Physician] - Discharge Medications: Continued insulin glargine [Lantus Solostar U-100 Insulin] 100 unit/mL (3 mL) insulin pen 14 unit SUBCUT DAILY insulin aspart U-100 100 unit/mL (3 mL) insulin pen 1 unit SUBCUT .see dose instruction Date of admission: 04/16/25 16:04 Primary Care Provider: PHYSICIAN,[employer]IP ATTACHER Admitting Provider: Sylvain Connolly Attending physician on admission: Sylvain Connolly Condition: Stable Hospitalist MIPS Heart Failure (Exclusion) Patient has history of Heart Transplant or Left Ventricular Assistive Device?: No IF YES, STOP HERE Heart Failure (Qualifier) Patient has current or prior documentation of LVEF less than or equal to 40%, or mod/servere depressed LVSF?: No IF NO, STOP HERE
--- NOTE | 2025-04-18 12:00 | PC.NURSE ---
HospitalistTeri notified of 360 glucose for lunch. Do not administer sliding scale for lunch. Administer one time dose of Novolog 10 units SQ and recheck glucose and notify provider of results.
[2025-04-18] MEDS: INSULIN ASPART (*BKC) 100 UNITS/ML 10 UNITS SUB-Q (12:06)
[2025-04-18 12:43] LABS: Glucose Point of Care 289 mg/dl (65-105)
--- NOTE | 2025-05-11 14:50 | PCCDE ---
Attempted to place DM educator courtesy follow up call. [phone] - outgoing voice message indicates: [facility]. Unable to reach patient.
== END 2025-04-18 13:40 | disposition home or self-care (01) | DRG 420 ==
LOC: ANHED 16:02 → ANHICU 16:15 → ANH3MEDSUR 04-17 18:08
PROVIDERS: Emergency Medicine; Internal Medicine; Admitting Provider Internal Medicine; Emergency Provider Emergency Medicine; Visit Provider Internal Medicine Critical Care Medicine
DX: E10.10 Type 1 diabetes mellitus with ketoacidosis without coma (principal); E87.5 Hyperkalemia; K52.9 Noninfective gastroenteritis and colitis, unspecified; K20.90 Esophagitis, unspecified without bleeding; S30.860A Insect bite (nonvenomous) of lower back and pelvis, initial encounter; R21 Rash and other nonspecific skin eruption; W57.XXXA Bitten or stung by nonvenomous insect and other nonvenomous arthropods, initial encounter; Z91.148 Patient's other noncompliance with medication regimen for other reason; Z79.4 Long term (current) use of insulin; Z72.0 Tobacco use
CPT/HCPCS: 36415; 71045; 71260; 74177; 80048; 80053; 80202; 80307; 81001; 81025; 82010; 82803; 82948; 83036; 83735; 84100; 85025; 87040; 87637; 87641; 96361; 96365; 96367; 96375; 99285; A9270; J0692; J1815; J1836; J2405; J2470; J3370; J3480; J7030; J7120; Q9967